=== PATIENT | female | born 1985 | race African-American/Black ===

== ENCOUNTER 2017-06-22 00:40 | Emergency (ER) | payer OTHER ==
[~2017-06-22] VITALS: Ht 162.6 cm; Wt 65.8 kg
[2017-06-22 01:00] VITALS: BP 125/80
--- NOTE | 2017-06-22 01:33 | NUR ---
Patient discharged to home in stable condition. Written and verbal after care instructions given. Patient verbalizes understanding of instruction.
== END 2017-06-22 01:33 | disposition home or self-care (01) ==
LOC: ER 00:48
DX: R00.2 Palpitations (principal); R45.1 Restlessness and agitation
CPT/HCPCS: 93005; 99283; A4606; Z7610